=== PATIENT | female | born 1960 | race African-American/Black ===

== ENCOUNTER 2017-04-07 23:44 | Emergency (ER) | payer MEDICARE, MEDICAID ==
[~2017-04-07] VITALS: Ht 175.3 cm; Wt 78.9 kg
[~2017-04-07 23:44] MED LIST: BENA10TA47 PO; METOPROLOL PO
[2017-04-08 00:27] LABS: Urine Bilirubin Negative (Negative); Urine Blood Negative /uL (Negative); Urine Color Yellow (Yellow); Urine Glucose Normal (Normal); Urine Ketone Negative (Negative); Urine Nitrite Negative (Negative); Urine RBC 1 /hpf (0 - 4); Urine Squamous Epithelial Cell FEW /hpf (<5); Urine Urobilinogen Normal (Negative)
[2017-04-08 00:41] LABS: Hematocrit 38.3 % (36.0-46.0); Hemoglobin 12.8 g/dL (12.2-16.2); Mean Corpuscular Hemoglobin 31.7 pg (28.0-32.0); Mean Corpuscular Hgb Conc. 33.3 g/dL (32.0-36.0); Mean Corpuscular Volume 95.3 fL (80.0-100.0); Mean Platelet Volume 8.2 fL (7.4-10.4); Platelet Count (auto) 297 10^3/uL (140-450); Red Cell Distribution Width 13.9 % (11.6-16.0); SUSPECT SEE PRINTOUT; White Blood Cell 6.6 10^3/uL (4.4-10.8)
[2017-04-08 00:44] LABS: Metamyelocytes % 0; Myelocytes % 0; Promyelocytes % 0; Reactive Lymphocytes 0
[2017-04-08 00:51] LABS: Albumin 3.6 g/dL (3.4-5.0); BUN/Creatinine Ratio 15.4; Calcium 8.7 mg/dL (8.5-10.1); Potassium 4.1 mmol/L (3.5-5.1)
[2017-04-08 00:54] LABS: Bilirubin, Total 0.2 mg/dL (0.2-1.0)
[2017-04-08 01:34] LABS: Platelet Estimate Adequate; RBC Morphology Normal
[2017-04-08 03:12] VITALS: BP 156/98
== END 2017-04-08 03:12 | disposition home or self-care (01) ==
LOC: ER 23:44
DX: L02.01 Cutaneous abscess of face (principal); E78.5 Hyperlipidemia, unspecified; I10 Essential (primary) hypertension
CPT/HCPCS: 36415; 80053; 81001; 85007; 85027; 94761

== ENCOUNTER 2017-05-14 16:16 | Emergency (ER) | payer MEDICARE, MEDICAID ==
[~2017-05-14] VITALS: Ht 175.3 cm; Wt 79.8 kg
[2017-05-14 16:51] VITALS: BP 149/109
== END 2017-05-14 17:41 | disposition home or self-care (01) ==
LOC: ER 16:18
DX: L70.0 Acne vulgaris (principal); I10 Essential (primary) hypertension; E78.5 Hyperlipidemia, unspecified

== ENCOUNTER → 2017-11-04 | Outpatient (CLI) | payer MEDICARE, MEDICAID | END | disposition home or self-care (01) | LOC: Rad HDHVI 11:33 | PROVIDERS: ATTEND Internal Medicine Cardiovascular Disease | DX: R07.9 Chest pain, unspecified (principal) | CPT/HCPCS: 93306 ==

== ENCOUNTER → 2017-11-17 | Outpatient (CLI) | payer MEDICARE, MEDICAID ==
[~2017-11-17] VITALS: Ht 176.5 cm; Wt 73.9 kg
== END ==
LOC: Rad HDHVI 10:57
PROVIDERS: ATTEND Internal Medicine Cardiovascular Disease
DX: R07.89 Other chest pain (principal); R06.02 Shortness of breath; E78.00 Pure hypercholesterolemia, unspecified; I10 Essential (primary) hypertension; C50.919 Malignant neoplasm of unspecified site of unspecified female breast
CPT/HCPCS: 78452; 93017; 96374; A9500

== ENCOUNTER → 2018-02-16 | Outpatient (CLI) | payer MEDICARE, MEDICAID ==
[2018-02-16 10:35] VITALS: BP_SYST 115; BP_SYST 120; BP_DIAS 79; BP_DIAS 83
== END | disposition home or self-care (01) ==
LOC: CHF HDHVI 10:39
PROVIDERS: ATTEND Internal Medicine Cardiovascular Disease
DX: I25.118 Atherosclerotic heart disease of native coronary artery with other forms of angina pectoris (principal); I73.9 Peripheral vascular disease, unspecified; I11.0 Hypertensive heart disease with heart failure; I50.23 Acute on chronic systolic (congestive) heart failure; R06.02 Shortness of breath; E78.00 Pure hypercholesterolemia, unspecified
CPT/HCPCS: G0166

== ENCOUNTER → 2018-02-17 | Outpatient (CLI) | payer MEDICARE, MEDICAID ==
[2018-02-17 10:48] VITALS: BP_SYST 123; BP_SYST 132; BP_DIAS 83; BP_DIAS 88
== END | disposition home or self-care (01) ==
LOC: CHF HDHVI 10:30
PROVIDERS: ATTEND Internal Medicine Cardiovascular Disease
DX: I25.118 Atherosclerotic heart disease of native coronary artery with other forms of angina pectoris (principal); I73.9 Peripheral vascular disease, unspecified; I11.0 Hypertensive heart disease with heart failure; I50.23 Acute on chronic systolic (congestive) heart failure; R06.02 Shortness of breath; E78.00 Pure hypercholesterolemia, unspecified
CPT/HCPCS: G0166

== ENCOUNTER → 2018-02-20 | Outpatient (CLI) | payer MEDICARE, MEDICAID ==
[2018-02-20 11:25] VITALS: BP_SYST 130; BP_SYST 136; BP_DIAS 90; BP_DIAS 91
== END | disposition home or self-care (01) ==
LOC: CHF HDHVI 11:01
PROVIDERS: ATTEND Internal Medicine Cardiovascular Disease
DX: I25.718 Atherosclerosis of autologous vein coronary artery bypass graft(s) with other forms of angina pectoris (principal); I11.0 Hypertensive heart disease with heart failure; I50.23 Acute on chronic systolic (congestive) heart failure; I73.9 Peripheral vascular disease, unspecified; Z87.891 Personal history of nicotine dependence; Z95.0 Presence of cardiac pacemaker
CPT/HCPCS: G0166

== ENCOUNTER → 2018-02-21 | Outpatient (CLI) | payer MEDICARE, MEDICAID ==
[~2018-02-21] MED LIST changes: +AMLO10TA2 PO; +ANAS1TAB6 PO; +GABA300C10 PO; +METO25TA5 PO; +OMEP20TA PO; +PRE5T GT; +RANO500T2 PO; +SIMV-8 PO
[2018-02-21 10:52] VITALS: BP_SYST 130; BP_SYST 142; BP_DIAS 83; BP_DIAS 90
== END | disposition home or self-care (01) ==
LOC: CHF HDHVI 10:27
PROVIDERS: ATTEND Internal Medicine Cardiovascular Disease
DX: I25.718 Atherosclerosis of autologous vein coronary artery bypass graft(s) with other forms of angina pectoris (principal); I50.23 Acute on chronic systolic (congestive) heart failure; R06.02 Shortness of breath; I73.9 Peripheral vascular disease, unspecified
CPT/HCPCS: G0166

== ENCOUNTER → 2018-02-22 | Outpatient (CLI) | payer MEDICARE, MEDICAID ==
[2018-02-22 10:58] VITALS: BP_SYST 136; BP_SYST 140; BP_DIAS 86; BP_DIAS 92
== END | disposition home or self-care (01) ==
LOC: CHF HDHVI 10:46
PROVIDERS: ATTEND Internal Medicine Cardiovascular Disease
DX: I25.718 Atherosclerosis of autologous vein coronary artery bypass graft(s) with other forms of angina pectoris (principal); I11.0 Hypertensive heart disease with heart failure; I50.23 Acute on chronic systolic (congestive) heart failure; I73.9 Peripheral vascular disease, unspecified; R06.02 Shortness of breath; J44.9 Chronic obstructive pulmonary disease, unspecified; E78.00 Pure hypercholesterolemia, unspecified; Z87.891 Personal history of nicotine dependence; Z95.0 Presence of cardiac pacemaker
CPT/HCPCS: G0166

== ENCOUNTER → 2018-03-07 | Outpatient (CLI) | payer MEDICARE, MEDICAID ==
[~2018-03-07] MED LIST changes: -AMLO10TA2 PO; -ANAS1TAB6 PO; -GABA300C10 PO; +KETOROLAC TROMETH 60MG/2ML VIAL IM ONE; -METO25TA5 PO; -OMEP20TA PO; -PRE5T GT; -RANO500T2 PO; -SIMV-8 PO; +SODIUM CHLORIDE 0.9% 500 ML IV ONE
[2018-03-07 11:08] VITALS: BP_SYST 138; BP_SYST 143; BP_DIAS 98; BP_DIAS 99
[2018-03-07 13:45] VITALS: BP 142/97
[2018-03-07 16:19] LABS: Urine Bacteria FEW /hpf (None Seen); Urine Blood Negative /uL (Negative); Urine Specific Gravity 1.007 (1.001-1.035); Urine WBC <1 /hpf (0 - 5)
[2018-03-07 16:24] LABS: Albumin 3.4 g/dL (3.4-5.0); Calcium 8.9 mg/dL (8.5-10.1); Potassium 3.9 mmol/L (3.5-5.1)
[2018-03-07 16:26] LABS: BUN/Creatinine Ratio 8.4
[2018-03-07 16:28] LABS: Bilirubin, Total 0.3 mg/dL (0.2-1.0); Total Protein 7.1 g/dL (6.4-8.2)
[2018-03-07 16:36] LABS: Basophils # (auto) 0 uL; Basophils % (auto) 0.5 % (0.0-2.0); Eosinophils # (auto) 0 uL; Eosinophils % (auto) 0.3 % (0.0-7.0); Lymphocytes # (auto) 1.9 uL; Lymphocytes % (auto) 24.1 % (10.0-50.0); Mean Corpuscular Hemoglobin 33.7 pg (28.0-32.0); Mean Corpuscular Hgb Conc. 33.4 g/dL (32.0-36.0); Mean Corpuscular Volume 100.9 fL (80.0-100.0); Monocytes # (auto) 0.4 uL; Monocytes % (auto) 4.9 % (0.0-12.0); Neutrophils # (auto) 5.5 uL; Neutrophils % (auto) 70.2 % (37.0-80.0); Nucleated Red Blood Cells % 0.1 %; Platelet Count (auto) 314 10^3/uL (140-450); Red Blood Cells 4.16 10^6/uL (4.0-5.20); Red Cell Distribution Width 15.5 % (11.8-14.3); White Blood Cell 7.8 10^3/uL (4.4-10.8)
== END | disposition home or self-care (01) ==
LOC: CHF HDHVI 10:19
PROVIDERS: ATTEND Internal Medicine Cardiovascular Disease
DX: I11.0 Hypertensive heart disease with heart failure (principal); I50.23 Acute on chronic systolic (congestive) heart failure; I50.33 Acute on chronic diastolic (congestive) heart failure; R42 Dizziness and giddiness; D64.9 Anemia, unspecified; N39.0 Urinary tract infection, site not specified; R06.02 Shortness of breath; I67.9 Cerebrovascular disease, unspecified; M54.5 Low back pain; M54.2 Cervicalgia; I25.119 Atherosclerotic heart disease of native coronary artery with unspecified angina pectoris; J44.9 Chronic obstructive pulmonary disease, unspecified; E78.5 Hyperlipidemia, unspecified; E78.00 Pure hypercholesterolemia, unspecified; Z95.0 Presence of cardiac pacemaker; Z87.891 Personal history of nicotine dependence
CPT/HCPCS: 36415; 80053; 81001; 85025; 87086; 96360; 96372; G0166; G0463; J1885; J7040

== ENCOUNTER → 2018-03-13 | Outpatient (CLI) | payer MEDICARE, MEDICAID ==
[~2018-03-13] MED LIST changes: -KETOROLAC TROMETH 60MG/2ML VIAL IM ONE; -SODIUM CHLORIDE 0.9% 500 ML IV ONE
[2018-03-13 14:07] VITALS: BP 134/92
[2018-03-13 14:08] VITALS: BP 144/92
== END | disposition home or self-care (01) ==
LOC: CHF HDHVI 10:48
PROVIDERS: ATTEND Internal Medicine Cardiovascular Disease
DX: I25.118 Atherosclerotic heart disease of native coronary artery with other forms of angina pectoris (principal); I50.23 Acute on chronic systolic (congestive) heart failure; R06.02 Shortness of breath; I73.9 Peripheral vascular disease, unspecified
CPT/HCPCS: G0166

== ENCOUNTER → 2018-03-14 | Outpatient (CLI) | payer MEDICARE, MEDICAID ==
[2018-03-14 11:15] VITALS: BP_SYST 137; BP_SYST 138; BP_DIAS 85; BP_DIAS 87
== END | disposition home or self-care (01) ==
LOC: CHF HDHVI 11:02
PROVIDERS: ATTEND Internal Medicine Cardiovascular Disease
DX: I25.118 Atherosclerotic heart disease of native coronary artery with other forms of angina pectoris (principal); I50.23 Acute on chronic systolic (congestive) heart failure; R06.02 Shortness of breath; I73.9 Peripheral vascular disease, unspecified
CPT/HCPCS: G0166

== ENCOUNTER → 2018-03-15 | Outpatient (CLI) | payer MEDICARE, MEDICAID ==
[2018-03-15 11:21] VITALS: BP_SYST 126; BP_SYST 134; BP_DIAS 88; BP_DIAS 89
== END | disposition home or self-care (01) ==
LOC: CHF HDHVI 10:49
PROVIDERS: ATTEND Internal Medicine Cardiovascular Disease
DX: I25.118 Atherosclerotic heart disease of native coronary artery with other forms of angina pectoris (principal); I50.23 Acute on chronic systolic (congestive) heart failure; I73.9 Peripheral vascular disease, unspecified; R06.02 Shortness of breath
CPT/HCPCS: G0166

== ENCOUNTER → 2018-03-16 | Outpatient (CLI) | payer MEDICARE, MEDICAID ==
[2018-03-16 11:24] VITALS: BP_SYST 127; BP_SYST 129; BP_DIAS 78; BP_DIAS 85
== END | disposition home or self-care (01) ==
LOC: CHF HDHVI 11:02
PROVIDERS: ATTEND Internal Medicine Cardiovascular Disease
DX: I25.118 Atherosclerotic heart disease of native coronary artery with other forms of angina pectoris (principal); I11.0 Hypertensive heart disease with heart failure; I50.23 Acute on chronic systolic (congestive) heart failure; I73.9 Peripheral vascular disease, unspecified; E78.00 Pure hypercholesterolemia, unspecified; J44.9 Chronic obstructive pulmonary disease, unspecified; E78.5 Hyperlipidemia, unspecified; F41.9 Anxiety disorder, unspecified
CPT/HCPCS: G0166

== ENCOUNTER → 2018-03-21 | Outpatient (CLI) | payer MEDICARE, MEDICAID ==
[~2018-03-21] MED LIST changes: +AMLO10TA2 PO; +ANAS1TAB6 PO; +GABA300C10 PO; +METO25TA5 PO; +OMEP20TA PO; +PRE5T GT; +RANO500T2 PO; +SIMV-8 PO
[2018-03-21 12:27] VITALS: BP_SYST 134; BP_SYST 142; BP_DIAS 88; BP_DIAS 96
== END | disposition home or self-care (01) ==
LOC: CHF HDHVI 11:05
PROVIDERS: ATTEND Internal Medicine Cardiovascular Disease
DX: I25.118 Atherosclerotic heart disease of native coronary artery with other forms of angina pectoris (principal); I11.0 Hypertensive heart disease with heart failure; I50.23 Acute on chronic systolic (congestive) heart failure; R06.02 Shortness of breath; I73.9 Peripheral vascular disease, unspecified; E78.5 Hyperlipidemia, unspecified; Z87.891 Personal history of nicotine dependence
CPT/HCPCS: G0166

== ENCOUNTER → 2018-03-23 | Outpatient (CLI) | payer MEDICARE, MEDICAID ==
[2018-03-23 13:45] VITALS: BP_SYST 139; BP_SYST 141; BP_DIAS 86; BP_DIAS 91
== END | disposition home or self-care (01) ==
LOC: CHF HDHVI 12:19
PROVIDERS: ATTEND Internal Medicine Cardiovascular Disease
DX: I25.118 Atherosclerotic heart disease of native coronary artery with other forms of angina pectoris (principal); R06.02 Shortness of breath; I73.9 Peripheral vascular disease, unspecified; J44.9 Chronic obstructive pulmonary disease, unspecified; I11.0 Hypertensive heart disease with heart failure; I50.23 Acute on chronic systolic (congestive) heart failure; E78.5 Hyperlipidemia, unspecified
CPT/HCPCS: G0166

== ENCOUNTER 2018-03-24 15:02 | Inpatient (IN) | payer MEDICARE, MEDICAID ==
[~2018-03-24] VITALS: Ht 176.5 cm; Wt 80.4 kg
[~2018-03-24 15:02] MED LIST changes: -AMLO10TA2 PO; -ANAS1TAB6 PO; -GABA300C10 PO; -METO25TA5 PO; -OMEP20TA PO; -PRE5T GT; -RANO500T2 PO; -SIMV-8 PO
[2018-03-24 16:21] LABS: Hematocrit 43.4 % (36.0-46.0); Hemoglobin 14.6 g/dL (12.2-16.2); Mean Corpuscular Hemoglobin 33.9 pg (28.0-32.0); Mean Corpuscular Hgb Conc. 33.7 g/dL (32.0-36.0); Mean Corpuscular Volume 100.6 fL (80.0-100.0); Platelet Count (auto) 293 10^3/uL (140-450); Red Blood Cells 4.32 10^6/uL (4.0-5.20); Red Cell Distribution Width 15.3 % (11.8-14.3); White Blood Cell 6.9 10^3/uL (4.4-10.8)
[2018-03-24 16:24] LABS: Band Neutrophils % (manual) 0
[2018-03-24 16:25] LABS: Basophils % (manual) 0 (0.0-2.0); Blast Cells 0; Metamyelocytes % 0; Myelocytes % 0; Promyelocytes % 0; Reactive Lymphocytes 0
[2018-03-24 16:44] LABS: Alanine Aminotransferase 50 U/L (13-56); Albumin 3.7 g/dL (3.4-5.0); Alkaline Phosphatase 55 U/L (45-117); Anion Gap 9 (5-15); Aspartate Aminotransferase 21 U/L (15-37); BUN/Creatinine Ratio 9.8; Bilirubin, Total 0.4 mg/dL (0.2-1.0); Blood Alcohol < 3.0 mg/dL (0-5); Blood Urea Nitrogen 10 mg/dL (7-18); Calcium 9.1 mg/dL (8.5-10.1); Carbon Dioxide 27 mmol/L (21-32); Chloride 105 mmol/L (98-107); GFR African American 72 mL/min; GFR Non-African American 60 mL/min; Glucose 90 mg/dL (74-106); Magnesium 2.8 mg/dL (1.6-2.6); Potassium 3.8 mmol/L (3.5-5.1); Sodium 141 mmol/L (136-145)
[2018-03-24] MEDS ORDERED: MORPHINE SULF INJ 2 MG/ML SYRINGE 1ML IV PRN ×2 (18:30)
[2018-03-24] MEDS ORDERED: LACTULOSE 20Gm/30ML SOLN PO PRN (18:30)
[2018-03-24] MEDS ORDERED: NITROGLYCERIN 0.4 MG SL TAB SL PRN (18:30)
[2018-03-24] MEDS ORDERED: PROMETHAZINE HCL 25 MG/ML 1ML IV PRN (18:30)
[2018-03-24] MEDS ORDERED: TEMAZEPAM 15 MG CAP PO PRN (18:30)
[2018-03-24] MEDS ORDERED: ACETAMINOPHEN 500 MG TAB PO PRN (18:30)
[2018-03-24] MEDS ORDERED: LORazepam 0.5 MG TAB PO PRN (18:30)
[2018-03-24] MEDS ORDERED: LABETALOL HCL 5 MG/ML ML 20ML VIAL IV PRN (18:30)
[2018-03-24] MEDS ORDERED: HYDROcodone-ACET 5/325MG TAB PO PRN (18:30)
[2018-03-24 19:06] LABS: Eosinophils % (manual) 2 (0-7); Lymphocytes % (manual) 40 (10.0-50.0); Monocytes % (manual) 4 (0-12)
[2018-03-24 19:46] LABS: Urine Bacteria NONE SEEN /hpf (None Seen); Urine Blood Negative /uL (Negative); Urine Specific Gravity 1.005 (1.001-1.035); Urine WBC <1 /hpf (0 - 5)
[2018-03-24 19:47] LABS: Alcohol, Urine < 3.0 mg/dL (0-5); Amphetamine Screen, Urine NEGATIVE (NEGATIVE); Barbiturate Scree,Urine NEGATIVE (NEGATIVE); Benzodiazephine Screen, Urine NEGATIVE (NEGATIVE); Cannabinoid Screen, Urine NEGATIVE (NEGATIVE); Cocaine Screen, Urine NEGATIVE (NEGATIVE); Opiate Scree,Urine NEGATIVE (NEGATIVE); Phencyclidine Screen, Urine NEGATIVE (NEGATIVE)
[2018-03-24] MEDS ORDERED: IOHEXOL 300 MG/ML 75ml BOTTLE IJ ONE (20:30)
[2018-03-24] MEDS: SODIUM CHLORIDE 0.9% 1,000 ML IV SCH (20:46)
[2018-03-24] MEDS: OXYCODONE W/ ACETAMINOPHEN 5/325MG TABLET PO PRN (20:57)
[2018-03-24] MEDS ORDERED: ATORVASTATIN 20 MG TAB PO SCH (22:00)
[2018-03-24] MEDS: METOPROLOL TARTRATE 25 MG TAB PO SCH (22:13)
[2018-03-24] MEDS: MORPHINE SULF 15mg ER tab PO SCH (22:14)
[2018-03-24 23:44] VITALS: BP 131/97
[2018-03-25] VITALS (7 sets, daily range): BP systolic 110–131; BP diastolic 72–97
[2018-03-25] MEDS ORDERED: METO25TA5 PO (00:14)
[2018-03-25] MEDS: MORPHINE SULF INJ 2 MG/ML SYRINGE 1ML IV PRN ×2 (05:13→22:17)
[2018-03-25 06:10] LABS: Cholesterol 218 mg/dL (< 200); HDL Cholesterol 62 mg/dL (40-59); LDL Cholesterol 117 mg/dL (< 100); Triglycerides 275 mg/dL (< 150)
[2018-03-25] MEDS: SODIUM CHLORIDE 0.9% 1,000 ML IV SCH ×2 (07:08→19:25)
[2018-03-25] MEDS: PANTOPRAZOLE 40 MG TAB PO SCH (09:56)
[2018-03-25] MEDS: ASPirin 81 mg TAB PO SCH (09:56)
[2018-03-25] MEDS: METOPROLOL TARTRATE 25 MG TAB PO SCH ×2 (09:57→22:08)
[2018-03-25] MEDS: ENOXAPARIN SOD 40 MG/0.4 ML SYRINGE SC SCH (09:57)
[2018-03-25] MEDS ORDERED: BENAZEPRIL PO SCH (10:00)
[2018-03-25] MEDS: MORPHINE SULF 15mg ER tab PO SCH ×2 (10:00→22:00)
[2018-03-25] MEDS ORDERED: HYDROCHLOROTHIAZI PO SCH (10:00)
[2018-03-25] MEDS: OXYCODONE W/ ACETAMINOPHEN 5/325MG TABLET PO PRN ×2 (10:06→16:39)
[2018-03-25] MEDS ORDERED: LORazepam 2MG/ML-1ML VIAL IV PRN (12:45)
[2018-03-25] MEDS ORDERED: GABA300C10 PO (14:30)
[2018-03-25] MEDS ORDERED: OMEP20TA PO (14:30)
[2018-03-25] MEDS ORDERED: AMLO10TA2 PO (14:30)
[2018-03-25] MEDS ORDERED: PRE5T GT (14:30)
[2018-03-25] MEDS ORDERED: ANAS1TAB6 PO (14:30)
[2018-03-25] MEDS ORDERED: RANO500T2 PO (14:30)
[2018-03-25] MEDS ORDERED: SIMV-8 PO (14:30)
[2018-03-25] MEDS: ATORVASTATIN 20 MG TAB PO SCH (22:09)
[2018-03-26 05:00] VITALS: BP 139/90
[2018-03-26 09:00] VITALS: BP 131/77
[2018-03-26] MEDS: METOPROLOL TARTRATE 25 MG TAB PO SCH ×2 (09:52→22:33)
[2018-03-26] MEDS: PANTOPRAZOLE 40 MG TAB PO SCH (09:54)
[2018-03-26] MEDS: ENOXAPARIN SOD 40 MG/0.4 ML SYRINGE SC SCH (09:54)
[2018-03-26] MEDS: ASPirin 81 mg TAB PO SCH (09:54)
[2018-03-26] MEDS: MORPHINE SULF INJ 2 MG/ML SYRINGE 1ML IV PRN ×2 (09:55→23:00)
[2018-03-26] MEDS: SODIUM CHLORIDE 0.9% 1,000 ML IV SCH ×2 (09:56→22:35)
[2018-03-26] MEDS: MORPHINE SULF 15mg ER tab PO SCH ×2 (10:00→22:00)
[2018-03-26 13:00] VITALS: BP 135/95
[2018-03-26] MEDS: OXYCODONE W/ ACETAMINOPHEN 5/325MG TABLET PO PRN (16:34)
[2018-03-26 17:00] VITALS: BP 145/91
[2018-03-26 20:00] VITALS: BP 146/112
[2018-03-26 22:00] VITALS: BP 133/81
[2018-03-26] MEDS: ATORVASTATIN 20 MG TAB PO SCH (22:35)
[2018-03-27 05:00] VITALS: BP 144/114
[2018-03-27 07:30] VITALS: BP 124/85
[2018-03-27] MEDS: SODIUM CHLORIDE 0.9% 1,000 ML IV SCH (08:55)
[2018-03-27] MEDS ORDERED: amLODIPine BESYLATE 5 MG TAB PO SCH (10:00)
[2018-03-27] MEDS: MORPHINE SULF 15mg ER tab PO SCH (10:00)
[2018-03-27] MEDS ORDERED: ANASTROZOLE 1MG TAB PO SCH (10:00)
[2018-03-27 10:43] LABS: Folate (Folic Acid) 11.23 ng/mL (5.38-24)
[2018-03-27] MEDS: METOPROLOL TARTRATE 25 MG TAB PO SCH (11:23)
[2018-03-27] MEDS: ASPirin 81 mg TAB PO SCH (11:24)
[2018-03-27] MEDS: ENOXAPARIN SOD 40 MG/0.4 ML SYRINGE SC SCH (11:25)
[2018-03-27] MEDS: PANTOPRAZOLE 40 MG TAB PO SCH (11:25)
[2018-03-27 12:00] VITALS: BP 133/95
[2018-03-27] MEDS: OXYCODONE W/ ACETAMINOPHEN 5/325MG TABLET PO PRN (14:07)
[2018-03-27 16:20] VITALS: BP 122/95
== END 2018-03-27 17:40 | disposition home or self-care (01) | DRG 69 ==
LOC: EDBD 15:02 → ER 15:05 → TELE 15:06 → TELE-WESTW 23:42
PROVIDERS: ADMIT Internal Medicine; ATTEND Internal Medicine Pulmonary Disease
DX: G45.9 Transient cerebral ischemic attack, unspecified (principal); E78.5 Hyperlipidemia, unspecified; F41.9 Anxiety disorder, unspecified; G62.9 Polyneuropathy, unspecified; M54.2 Cervicalgia; I10 Essential (primary) hypertension; Z79.82 Long term (current) use of aspirin; Z79.899 Other long term (current) drug therapy; Z82.49 Family history of ischemic heart disease and other diseases of the circulatory system; Z83.3 Family history of diabetes mellitus; Z85.3 Personal history of malignant neoplasm of breast; Z87.891 Personal history of nicotine dependence; Z90.13 Acquired absence of bilateral breasts and nipples
CPT/HCPCS: 99285; G0166; 36415; 70450; 70460; 70487; 70551; 71045; 72125; 80053; 80061; 80307; 80320; 81001; 82550; 82607; 82746; 83735; 84443; 84484; 85007; 85027; 85652; 93005; 93886; 94761; Q9967

== ENCOUNTER 2018-03-28 14:14 | Emergency (ER) | payer MEDICARE, MEDICAID ==
[~2018-03-28] VITALS: Ht 175.3 cm; Wt 68.0 kg
[~2018-03-28 14:14] MED LIST changes: +AMLO10TA2 PO; +ANAS1TAB6 PO; +GABA300C10 PO; +METO25TA5 PO; -METOPROLOL PO; +OMEP20TA PO; +PRE5T GT; +RANO500T2 PO; +SIMV-8 PO
[2018-03-28 14:24] VITALS: BP 158/71
== END 2018-03-28 17:09 | disposition left against medical advice (07) ==
LOC: ER 14:14 → EDBD 14:14 → ER 17:02
DX: R53.1 Weakness (principal); R20.0 Anesthesia of skin; I10 Essential (primary) hypertension; E78.5 Hyperlipidemia, unspecified
CPT/HCPCS: 93005

== ENCOUNTER → 2018-05-16 | Outpatient (CLI) | payer MEDICARE, MEDICAID ==
[~2018-05-16] MED LIST changes: +AMLO10TA12 PO; -AMLO10TA2 PO; -ANAS1TAB6 PO; +ANAS1TAB7 PO; +IOHEXOL 350 MG/ML 100ML IJ ONE; +SODIUM CHLORIDE 0.9% 1,000 ML IV SCH
[2018-05-16 10:50] VITALS: BP 153/102
[2018-05-16 12:50] VITALS: BP 146/104
== END | disposition home or self-care (01) ==
LOC: Rad HDHVI 10:41
PROVIDERS: ATTEND Internal Medicine Cardiovascular Disease
DX: J02.9 Acute pharyngitis, unspecified (principal); I10 Essential (primary) hypertension; E78.5 Hyperlipidemia, unspecified; R59.9 Enlarged lymph nodes, unspecified; F41.9 Anxiety disorder, unspecified; Z79.82 Long term (current) use of aspirin; Z79.899 Other long term (current) drug therapy; Z87.891 Personal history of nicotine dependence; Z85.3 Personal history of malignant neoplasm of breast
CPT/HCPCS: 70491; 82565; 96360; G0463; J7030; Q9967

== ENCOUNTER 2018-07-25 12:41 | Emergency (ER) | payer MEDICARE, MEDICAID ==
[~2018-07-25] VITALS: Ht 175.3 cm; Wt 78.9 kg
[~2018-07-25 12:41] MED LIST changes: -IOHEXOL 350 MG/ML 100ML IJ ONE; -SODIUM CHLORIDE 0.9% 1,000 ML IV SCH
[2018-07-25] MEDS ORDERED: SODIUM CHLORIDE 0.9% 1,000 ML IV ONE ×2 (13:37)
[2018-07-25 13:59] LABS: Basophils # (auto) 0.1 uL; Eosinophils # (auto) 0 uL; Eosinophils % (auto) 0.4 % (0.0-7.0); Monocytes # (auto) 0.5 uL; Neutrophils # (auto) 4.3 uL; White Blood Cell 8.2 10^3/uL (4.4-10.8)
[2018-07-25 14:01] LABS: Hematocrit 46.4 % (36.0-46.0); Hemoglobin 16.3 g/dL (12.2-16.2); Lymphocytes # (auto) 3.3 uL; Lymphocytes % (auto) 40.1 % (10.0-50.0); Mean Corpuscular Hemoglobin 35.3 pg (28.0-32.0); Mean Corpuscular Hgb Conc. 35.1 g/dL (32.0-36.0); Mean Corpuscular Volume 100.5 fL (80.0-100.0); Neutrophils % (auto) 52.5 % (37.0-80.0); Nucleated Red Blood Cells % 0.2 %; Platelet Count (auto) 295 10^3/uL (140-450); Red Blood Cells 4.62 10^6/uL (4.0-5.20); Red Cell Distribution Width 14.4 % (11.8-14.3)
[2018-07-25 14:29] LABS: Sodium 137 mmol/L (136-145)
[2018-07-25 14:30] LABS: Alanine Aminotransferase 66 U/L (13-56); Albumin 3.9 g/dL (3.4-5.0); Alkaline Phosphatase 63 U/L (45-117); Anion Gap 11 (5-15); Aspartate Aminotransferase 25 U/L (15-37); BUN/Creatinine Ratio 12.1; Bilirubin, Total 0.3 mg/dL (0.2-1.0); Blood Urea Nitrogen 12 mg/dL (7-18); Calcium 9.1 mg/dL (8.5-10.1); Carbon Dioxide 23 mmol/L (21-32); Chloride 103 mmol/L (98-107); GFR African American 74 mL/min; GFR Non-African American 61 mL/min; Glucose 97 mg/dL (74-106); Total Protein 7.5 g/dL (6.4-8.2)
[2018-07-25 14:56] LABS: Potassium 2.9 mmol/L (3.5-5.1)
[2018-07-25] MEDS ORDERED: POTASSIUM EFFERVESENT TAB 25 MEQ PO ONE (15:45)
[2018-07-25 16:02] VITALS: BP 149/109
[2018-07-25] MEDS ORDERED: ONDANSETRON HCL 4 MG/2 ML VIAL IV ONE (18:00)
[2018-07-25] MEDS ORDERED: MORPHINE SULFATE 4 MG/ML SYR/VIAL IV ONE (18:00)
== END 2018-07-25 18:56 | disposition home or self-care (01) ==
LOC: EDBD 12:41 → ER 12:49
DX: E86.0 Dehydration (principal); E87.6 Hypokalemia; E78.5 Hyperlipidemia, unspecified; I10 Essential (primary) hypertension; Z86.73 Personal history of transient ischemic attack (TIA), and cerebral infarction without residual deficits; Z79.899 Other long term (current) drug therapy; Z85.3 Personal history of malignant neoplasm of breast
CPT/HCPCS: 36415; 71046; 80053; 84484; 85025; 93005; 96361; 96374; 96375; 99285; J2270; J2405; J7030

== ENCOUNTER 2018-09-28 21:22 | Emergency (ER) | payer MEDICARE, MEDICAID ==
[~2018-09-28] VITALS: Ht 175.3 cm; Wt 83.0 kg
[2018-09-28 21:50] VITALS: BP 113/74
[2018-09-28 22:37] LABS: Basophils # (auto) 0.1 uL; Basophils % (auto) 0.9 % (0.0-2.0); Eosinophils # (auto) 0.1 uL; Platelet Count (auto) 242 10^3/uL (140-450)
[2018-09-28 22:39] LABS: Eosinophils % (auto) 1.1 % (0.0-7.0); Hematocrit 43.3 % (36.0-46.0); Hemoglobin 14.6 g/dL (12.2-16.2); Lymphocytes # (auto) 3.2 uL; Lymphocytes % (auto) 29.3 % (10.0-50.0); Mean Corpuscular Hemoglobin 34.4 pg (28.0-32.0); Mean Corpuscular Hgb Conc. 33.7 g/dL (32.0-36.0); Mean Corpuscular Volume 102.2 fL (80.0-100.0); Monocytes # (auto) 0.6 uL; Monocytes % (auto) 5.7 % (0.0-12.0); Neutrophils # (auto) 6.9 uL; Nucleated Red Blood Cells % 0.4 %; Red Blood Cells 4.24 10^6/uL (4.0-5.20); Red Cell Distribution Width 14.8 % (11.8-14.3)
[2018-09-28 22:51] LABS: Albumin 3.5 g/dL (3.4-5.0); BUN/Creatinine Ratio 13.8; Calcium 8.1 mg/dL (8.5-10.1); Magnesium 2.3 mg/dL (1.6-2.6); Potassium 4.1 mmol/L (3.5-5.1)
[2018-09-28 22:56] LABS: Bilirubin, Total 0.2 mg/dL (0.2-1.0); Total Protein 6.7 g/dL (6.4-8.2)
[2018-09-28 22:57] LABS: Lactic Acid w/Reflex 2.5 mmol/L (0.4-2.0)
== END 2018-09-29 02:46 | disposition left against medical advice (07) ==
LOC: ER 21:22
DX: R42 Dizziness and giddiness (principal); R53.1 Weakness; Z53.21 Procedure and treatment not carried out due to patient leaving prior to being seen by health care provider
CPT/HCPCS: 36415; 71045; 80053; 83605; 83735; 83880; 84484; 85025; 93005

== ENCOUNTER → 2019-07-02 | Outpatient (CLI) | payer MEDICARE, MEDICAID ==
[~2019-07-02] MED LIST changes: -AMLO10TA12 PO; +AMLO10TA13 PO
== END | disposition home or self-care (01) ==
LOC: Rad HDHVI 10:00
PROVIDERS: ATTEND Internal Medicine Cardiovascular Disease
DX: I07.1 Rheumatic tricuspid insufficiency (principal); I20.0 Unstable angina; I50.9 Heart failure, unspecified; R06.02 Shortness of breath
CPT/HCPCS: 93306

== ENCOUNTER 2019-07-29 18:03 | Inpatient (IN) | payer MEDICARE, MEDICAID ==
[~2019-07-29] VITALS: Ht 175.3 cm; Wt 73.7 kg
[2019-07-29] MEDS ORDERED: methylPREDNISolone SOD SUCC 125 MG/2 ML VL IV ONE (19:00)
[2019-07-29 21:42] LABS: Basophils # (auto) 0.1 uL; Basophils % (auto) 1.2 % (0.0-2.0); Eosinophils # (auto) 0 uL; Eosinophils % (auto) 0.6 % (0.0-7.0); Hematocrit 31.1 % (36.0-46.0); Hemoglobin 10.7 g/dL (12.2-16.2); Lymphocytes # (auto) 1.4 uL; Lymphocytes % (auto) 17.4 % (10.0-50.0); Mean Corpuscular Hemoglobin 34.3 pg (28.0-32.0); Mean Corpuscular Hgb Conc. 34.5 g/dL (32.0-36.0); Mean Corpuscular Volume 99.5 fL (80.0-100.0); Monocytes # (auto) 0.1 uL; Monocytes % (auto) 1.6 % (0.0-12.0); Neutrophils # (auto) 6.4 uL; Neutrophils % (auto) 79.2 % (37.0-80.0); Platelet Count (auto) 333 10^3/uL (140-450); Red Blood Cells 3.12 10^6/uL (4.0-5.20); Red Cell Distribution Width 15.8 % (11.8-14.3); White Blood Cell 8.1 10^3/uL (4.4-10.8)
[2019-07-29 22:00] LABS: Calcium 8.6 mg/dL (8.5-10.1); Chloride 111 mmol/L (98-107); Potassium 3.9 mmol/L (3.5-5.1); Sodium 141 mmol/L (136-145)
[2019-07-29 22:09] LABS: Alanine Aminotransferase 14 U/L (13-56); Albumin 3.4 g/dL (3.4-5.0); Alkaline Phosphatase 158 U/L (45-117); Anion Gap 7 (5-15); Aspartate Aminotransferase 14 U/L (15-37); BUN/Creatinine Ratio 16.3; Bilirubin, Total 0.2 mg/dL (0.2-1.0); Blood Urea Nitrogen 13 mg/dL (7-18); Carbon Dioxide 23 mmol/L (21-32); GFR African American 95 mL/min; GFR Non-African American 78 mL/min; Glucose 92 mg/dL (74-106); Total Protein 6.3 g/dL (6.4-8.2)
[2019-07-29] MEDS ORDERED: IPRATROPIUM BROM 0.5 MG/2.5ML INH SOL HHN ONE (22:15)
[2019-07-29] MEDS ORDERED: ALBUTEROL SULF 2.5 MG/0.5ML(0.5%) NEB SOLN HHN ONE (22:15)
[2019-07-29 22:23] LABS: Urine Bacteria NONE SEEN /hpf (None Seen); Urine Blood Negative /uL (Negative); Urine Mucus FEW (None Seen); Urine WBC 1 /hpf (0 - 5)
[2019-07-29] MEDS ORDERED: HYDROcodone-ACET 5/325MG TAB PO PRN (22:30)
[2019-07-29] MEDS ORDERED: ACETAMINOPHEN 325 MG TAB PO PRN (22:30)
[2019-07-29] MEDS ORDERED: MORPHINE SULF INJ 2 MG/ML SYRINGE 1ML IV PRN (22:30)
[2019-07-29] MEDS ORDERED: ONDANSETRON HCL 4 MG/2 ML VIAL IV PRN (22:30)
[2019-07-29] MEDS ORDERED: NITROGLYCERIN 0.4 MG SL TAB SL PRN (22:30)
[2019-07-29] MEDS ORDERED: TEMAZEPAM 15 MG CAP PO PRN (22:30)
[2019-07-29] MEDS ORDERED: IOHEXOL 350 MG/ML 100ML IJ ONE (22:36)
--- NOTE | 2019-07-30 00:25 | NUR ---
Telemetry admit from ER JUNIOR IVY admitted to Telemetry unit. Patient oriented to FERNANDA REDDY RN primary RN, unit, room, bed, and unit policies regarding patient care and visiting hours. Patient now on continuous telemetry monitoring, tele box # [id number] and telemetry reading on arrival to unit is sinus tachycardia at 100 beats per minute with bundle branch block. Patient weighed by bedscale and encouraged to call if they need something. Bed in lowest locked position, side rails up x2, call light within reach. Port-a-cath site to left upper chest noted to be clean, dry, intact, and covered with gauze. All questions and concerns addressed, patient verbalized understanding. Will rond every hour and as needed and continue to monitor.
--- NOTE | 2019-07-30 02:00 | NUR ---
Hospitalist Paged Patient reports morphine and norco use at home to manage pain, requesting to have morphine also ordered. call or contact centre team leader hospitalist paged, awaiting call back at this time.
--- NOTE | 2019-07-30 02:29 | NUR ---
Hospitalist Returned Page reo asset manager hospitalist Jose Manuel Olivares CONVENTIONAL UNDERWRITER returned page at this time, new orders received for Morphine 2 mg IV every eight hours as needed for pain and for change of frequency for current [place] order from every four hours to every six hours. All orders read back and verified, will implement as ordered and continue to monitor.
[2019-07-30 05:00] VITALS: BP 134/93
[2019-07-30 05:47] LABS: Red Blood Cells 3.16 10^6/uL (4.0-5.20)
[2019-07-30 05:49] LABS: Hematocrit 31.2 % (36.0-46.0); Hemoglobin 10.8 g/dL (12.2-16.2); Mean Corpuscular Hemoglobin 34.1 pg (28.0-32.0); Mean Corpuscular Hgb Conc. 34.5 g/dL (32.0-36.0); Mean Corpuscular Volume 98.7 fL (80.0-100.0); Platelet Count (auto) 346 10^3/uL (140-450); White Blood Cell 10.7 10^3/uL (4.4-10.8)
[2019-07-30 06:05] LABS: Basophils % (manual) 0 (0.0-2.0); Blast Cells 0; Eosinophils % (manual) 0 (0-7); Myelocytes % 0; Promyelocytes % 0; Reactive Lymphocytes 0
[2019-07-30] MEDS: GABAPENTIN 300 MG CAP PO SCH ×3 (06:37→21:24)
[2019-07-30 06:45] LABS: BUN/Creatinine Ratio 10.2; Calcium 9.3 mg/dL (8.5-10.1); Potassium 4.3 mmol/L (3.5-5.1)
--- NOTE | 2019-07-30 06:48 | NUR ---
Regarding Arimedix Per patient, she does not take this medication anymore, "the doctors only want me to do the chemo". Will update the medication reconciliation documentation and inform sree RIBERA.
--- NOTE | 2019-07-30 07:01 | NUR ---
Closing Note Patient lying in bed, eyes closed, respirations even and unlabored, appears asleep. Patient awakens to name and touch. No s/s of distress. Bed in lowest locked position, side rails up x2, call light within reach. Care endorsed to dayshift RN.
[2019-07-30 07:28] LABS: Band Neutrophils % (manual) 4; Lymphocytes % (manual) 4 (10.0-50.0); Metamyelocytes % 1; Monocytes % (manual) 1 (0-12)
[2019-07-30 08:30] VITALS: BP 122/89
--- NOTE | 2019-07-30 09:00 | NUR ---
Opening Shift Note Assumed care of patient, awake and alert. No S/S of distress/SOB or pain. Instructed on POC and to call for assist PRN, will continue to monitor for changes Q1hr and PRN.
[2019-07-30] MEDS: FAMOTIDINE 20 MG TAB PO SCH ×2 (09:25→21:24)
[2019-07-30] MEDS: amLODIPine BESYLATE 5 MG TAB PO SCH (09:26)
[2019-07-30] MEDS: METOPROLOL TARTRATE 25 MG TAB PO SCH ×2 (09:26→21:24)
[2019-07-30] MEDS: ANASTROZOLE 1 MG PO SCH (09:26)
[2019-07-30] MEDS: RANOLAZINE ER 500 MG TAB PO SCH ×2 (09:29→21:25)
[2019-07-30] MEDS ORDERED: methylPREDNISolone SOD SUCC 125 MG/2 ML VL IV SCH (10:00)
[2019-07-30] MEDS: HYDROcodone-ACET 5/325MG TAB PO PRN (10:41)
[2019-07-30 12:30] VITALS: BP 114/90
[2019-07-30] MEDS ORDERED: ALBUTEROL SULF 2.5 MG/0.5ML(0.5%) NEB SOLN NEB PRN (13:15)
[2019-07-30] MEDS ORDERED: IPRATROPIUM BROM 0.5 MG/2.5ML INH SOL NEB PRN (13:15)
[2019-07-30 17:23] VITALS: BP 132/92
[2019-07-30] MEDS: BUDESONIDE (INHALATION) 0.5 MG/2 ML NEB NEB SCH (19:07)
--- NOTE | 2019-07-30 19:20 | NUR ---
RT NOTE: PRE AND POST BEDSIDE MYRIAM DONE AND PLACED IN HARD CHART.
--- NOTE | 2019-07-30 19:30 | NUR ---
Opening Shift Assumed care of patient, awake and alert. No S/S of distress/SOB or pain. Insructed on POC and to callfor assist PRN, will continue to monitor for changes Q1hr and PRN. Fall and safety precautions in place. Call light within reach.
[2019-07-30] MEDS: MORPHINE SULF INJ 2 MG/ML SYRINGE 1ML IV PRN (21:25)
[2019-07-30] MEDS: methylPREDNISolone SOD SUCC 125 MG/2 ML VL IV SCH (21:25)
[2019-07-30 21:42] VITALS: BP 134/90
[2019-07-30] MEDS ORDERED: ATORVASTATIN 20 MG TAB PO SCH (22:00)
[2019-07-31 01:32] VITALS: BP 134/90
[2019-07-31 05:00] VITALS: BP 100/76
[2019-07-31] MEDS: GABAPENTIN 300 MG CAP PO SCH (05:25)
[2019-07-31] MEDS: MORPHINE SULF INJ 2 MG/ML SYRINGE 1ML IV PRN (05:26)
[2019-07-31] MEDS: BUDESONIDE (INHALATION) 0.5 MG/2 ML NEB NEB SCH (06:01)
--- NOTE | 2019-07-31 07:45 | NUR ---
OPENING NOTE OBSERVED PT SITTING UP IN BED EATING BREAKFAST. PATIENT DENIES ANY PAIN OR DISTRESS AT THIS TIME. UPDATED ON POC AND VERBALIZED UNDERSTANDING. ENCOURAGED PT TO CONTACT STAFF FOR PRN ASSISTANCE. CALL LIGHT WITHIN REACH. WILL CONTINUE TO MONITOR Q1H AND PRN. CONTINUE PT CARE.
[2019-07-31 08:00] VITALS: BP 134/90
--- NOTE | 2019-07-31 09:57 | NUR ---
AT BEDSIDE DR ROBERTSON IN TO SEE PATIENT.
[2019-07-31] MEDS: ANASTROZOLE 1 MG PO SCH (10:00)
[2019-07-31] MEDS: amLODIPine BESYLATE 5 MG TAB PO SCH (10:00)
[2019-07-31] MEDS: methylPREDNISolone SOD SUCC 125 MG/2 ML VL IV SCH (10:16)
[2019-07-31] MEDS: RANOLAZINE ER 500 MG TAB PO SCH (10:17)
[2019-07-31] MEDS: FAMOTIDINE 20 MG TAB PO SCH (10:17)
[2019-07-31] MEDS: HYDROcodone-ACET 5/325MG TAB PO PRN (10:17)
[2019-07-31] MEDS: METOPROLOL TARTRATE 25 MG TAB PO SCH (10:17)
--- NOTE | 2019-07-31 10:44 | NUR ---
ROOM AIR SATURATIONS ORDERS RECEIVED FROM DR. ROBERTSON TO CHECK PATIENTS O2 SATURATIONS ON ROOM AIR AFTER AMBULATION. MD REQUESTING TO BE CONTACTED IF SATURATIONS ARE 88% OR LESS ON RA. ORDER CARRIED OUT. PATIENT AMBULATED AROUND NURSING UNIT; STANDBY ASSIST. NO SOB NOTED OR REPORTED. RETURNED TO BED W/O INCIDENT. PATIENT SATURATED BETWEEN 96-100% ON RA.
[2019-07-31 11:11] VITALS: BP 99/73
[2019-07-31] MEDS ORDERED: PRE5T PO (11:33)
[2019-07-31] MEDS ORDERED: ALBUAER3 IN (11:33)
[2019-07-31] MEDS ORDERED: BUDE0.5S IN (11:33)
[2019-07-31 12:47] VITALS: BP 105/63
[2019-07-31 13:03] VITALS: BP 119/83
--- NOTE | 2019-07-31 14:00 | NUR ---
Discharge instructions given as ordered. Encourage to follow up with PMD as instructed. All questions and concerns addressed. Patient verbalized understanding. IV removed with catheter intact, pressure dressing applied. Telemetry unit returned to ICU. Patient taken to vehicle via wheelchair with all personal belongings, accompanied by family member. No distress noted at time of departure.
== END 2019-07-31 14:00 | disposition home or self-care (01) | DRG 189 ==
LOC: EDBD 18:03 → EDUNIT# 18:03 → ER 18:05 → TELE-WESTW 18:06
PROVIDERS: ADMIT Nurse Practitioner; ATTEND Internal Medicine
DX: J96.21 Acute and chronic respiratory failure with hypoxia (principal); J45.902 Unspecified asthma with status asthmaticus; I10 Essential (primary) hypertension; I25.10 Atherosclerotic heart disease of native coronary artery without angina pectoris; J44.9 Chronic obstructive pulmonary disease, unspecified; E78.5 Hyperlipidemia, unspecified; Z90.13 Acquired absence of bilateral breasts and nipples; Z85.3 Personal history of malignant neoplasm of breast; Z92.21 Personal history of antineoplastic chemotherapy; Z80.1 Family history of malignant neoplasm of trachea, bronchus and lung; Z82.49 Family history of ischemic heart disease and other diseases of the circulatory system; Z83.3 Family history of diabetes mellitus; Z82.5 Family history of asthma and other chronic lower respiratory diseases; Z86.73 Personal history of transient ischemic attack (TIA), and cerebral infarction without residual deficits; Z87.891 Personal history of nicotine dependence; Z95.828 Presence of other vascular implants and grafts; Z98.82 Breast implant status
CPT/HCPCS: 36415; 70450; 71045; 71275; 80048; 80053; 81001; 83880; 84484; 85007; 85025; 85027; 85379; 93005; 93970; 94640; 94761; 96374; 96375; G0378

== ENCOUNTER 2022-04-14 18:48 | Emergency (ER) | payer MEDICARE, MEDICAID ==
[~2022-04-14] VITALS: Ht 172.7 cm; Wt 72.6 kg
[~2022-04-14 18:48] MED LIST changes: +ALBUAER3 IN; +AMLO-496 PO; -AMLO10TA13 PO; -ANAS1TAB7 PO; -BENA10TA47 PO; +BENA1TAB20 PO; +BUDE0.5S IN; +PRE5T PO
[2022-04-14] MEDS ORDERED: HYDR-4798 PO (20:16)
[2022-04-14 20:23] VITALS: BP 128/78
== END 2022-04-14 20:28 | disposition home or self-care (01) ==
LOC: ER 18:48
DX: G62.9 Polyneuropathy, unspecified (principal); Q89.9 Congenital malformation, unspecified; I25.10 Atherosclerotic heart disease of native coronary artery without angina pectoris; J44.9 Chronic obstructive pulmonary disease, unspecified; E78.5 Hyperlipidemia, unspecified; I10 Essential (primary) hypertension; Z86.73 Personal history of transient ischemic attack (TIA), and cerebral infarction without residual deficits; Z79.899 Other long term (current) drug therapy

== ENCOUNTER 2022-06-24 16:12 | Emergency (ER) | payer MEDICARE, MEDICAID ==
[~2022-06-24] VITALS: Ht 167.6 cm; Wt 63.5 kg
[~2022-06-24 16:12] MED LIST changes: +HYDR-4798 PO
[2022-06-24] MEDS ORDERED: PANTOPRAZOLE 40 MG/10 ML VIAL INJ IV ONE (16:45)
[2022-06-24] MEDS ORDERED: SODIUM CHLORIDE 0.9% 500 ML IVB ONE (16:45)
[2022-06-24] MEDS ORDERED: PROCHLORPERAZINE EDISYLATE 5 MG/ML 2ML VIAL IV ONE (16:45)
[2022-06-24 18:43] LABS: Basophils # (auto) 0 10 ^3/uL (0-0.2); Eosinophils # (auto) 0 10 ^3/uL (0-0.8); Eosinophils % (auto) 0.3 % (0.0-7.0); Monocytes # (auto) 1.1 10 ^3/uL (0-1.3); White Blood Cell 10.6 10^3/uL (4.4-10.8)
[2022-06-24 18:44] LABS: Basophils % (auto) 0.1 % (0.0-2.0); Hematocrit 40.1 % (36.0-46.0); Hemoglobin 12.9 g/dL (12.2-16.2); Lymphocytes # (auto) 0.3 10 ^3/uL (0.4-5.4); Lymphocytes % (auto) 3.2 % (10.0-50.0); Mean Corpuscular Hemoglobin 33.1 pg (28.0-32.0); Mean Corpuscular Volume 103.3 fL (80.0-100.0); Neutrophils # (auto) 9.2 10 ^3/uL (1.6-8.6); Neutrophils % (auto) 86.4 % (37.0-80.0); Red Blood Cells 3.88 10^6/uL (4.0-5.20); Red Cell Distribution Width 13.5 % (11.8-14.3)
[2022-06-24 19:02] LABS: Albumin 3.4 g/dL (3.4-5.0); Calcium 8.2 mg/dL (8.5-10.1)
[2022-06-24 19:06] LABS: BUN/Creatinine Ratio 13.7; Bilirubin, Total 0.2 mg/dL (0.2-1.0); Total Protein 6.8 g/dL (6.4-8.2)
[2022-06-24] MEDS ORDERED: PANT40TA2 PO (19:47)
[2022-06-24] MEDS ORDERED: TRAM-297 PO (19:48)
[2022-06-25 01:30] VITALS: BP 132/99
== END 2022-06-25 01:52 | disposition home or self-care (01) ==
LOC: EDBD 16:12 → ER 16:12
DX: R10.13 Epigastric pain (principal); R11.2 Nausea with vomiting, unspecified; R19.7 Diarrhea, unspecified; I25.10 Atherosclerotic heart disease of native coronary artery without angina pectoris; I10 Essential (primary) hypertension; J44.9 Chronic obstructive pulmonary disease, unspecified; E78.5 Hyperlipidemia, unspecified; J45.909 Unspecified asthma, uncomplicated; Z86.73 Personal history of transient ischemic attack (TIA), and cerebral infarction without residual deficits; Z86.2 Personal history of diseases of the blood and blood-forming organs and certain disorders involving the immune mechanism; Z79.899 Other long term (current) drug therapy
CPT/HCPCS: 36415; 74176; 80053; 82150; 83690; 85025; 93005; 96361; 96374; 96375; 99285; C9113; J0780; J7040

== ENCOUNTER 2022-10-04 19:55 | Emergency (ER) | payer MEDICARE, MEDICAID ==
[~2022-10-04] VITALS: Ht 170.2 cm; Wt 72.6 kg
[~2022-10-04 19:55] MED LIST changes: +PANT40TA2 PO; +TRAM-297 PO
[2022-10-04 20:14] VITALS: BP 144/93
== END 2022-10-05 04:04 | disposition left against medical advice (07) ==
LOC: EDBD 19:55 → ER 19:57
DX: R07.89 Other chest pain (principal); R51.9 Headache, unspecified; R42 Dizziness and giddiness; J44.9 Chronic obstructive pulmonary disease, unspecified; E78.5 Hyperlipidemia, unspecified; I10 Essential (primary) hypertension; Z86.73 Personal history of transient ischemic attack (TIA), and cerebral infarction without residual deficits; Z88.6 Allergy status to analgesic agent
CPT/HCPCS: 70450; 71045; 71250; 74176; 93005

== ENCOUNTER 2025-04-06 21:12 | Emergency (ER) | payer MEDICARE, MEDICAID ==
[~2025-04-06] VITALS: Ht 175.3 cm; Wt 78.8 kg
[~2025-04-06 21:12] MED LIST changes: -AMLO-496 PO; +AMLO1TAB23 PO; +GABA-1250 PO; -GABA300C10 PO; -SIMV-8 PO; +SIMV20TA20 PO
--- NOTE | 2025-04-06 23:58 | ED.PDOC ---
Musculoskeletal HPI Comments 65-year-old female came to ER due to left lower extremity mass. Patient states she had this mass on her left heel for quite sometime now, notable progressive worsening. Patient is scheduled to see a automation/controls manager next week. Patient is able to ambulate. Patient denies any fever nausea or vomiting. Patient denies any traumatic events related to the heel. Chief Complaint: Lower Extremity Time Seen by MD: 23:57 Primary Care Provider: unknown Reviewed Notes: Nurses Notes Allergies: Coded Allergies: NO KNOWN ALLERGIES (Unverified , 01/19/11) Home Meds Active Scripts Tramadol Hcl (Ultram) 50 Mg Tab, 1 TAB PO Q6HR, #30 TAB Prov:CLARIBEL BENÍTEZ MD 06/24/22 Pantoprazole Sodium Sesquihydr (Protonix) 40 Mg Tab, 40 MG PO DAILY, #30 TAB Prov:CLARIBEL BENÍTEZ MD 06/24/22 Hydrocodone-Acetaminophen (Hydrocodone Bitartrate/AC 10-325 mg) 1 Tab Tab, 1 TAB PO Q6HP PRN, #20 TAB Prov:BRIAN JOHN MD 04/14/22 Prednisone (PREDNISONE) 5 Mg Tb, 20 MG PO BID for 5 Days, #40 TAB Prov:PURA ENGEL MD 07/31/19 Budesonide (Inhalation) (Budesonide) 0.5 Mg/2 Ml Giulia, 0.5 MG IN BID for 30 Days, ML Prov:PURA ENGEL MD 07/31/19 Albuterol Sulfate (VENTOLIN MDI) 90 Mcg Ih, 90 MCG IN Q6HP PRN for 30 Days, INH Prov:PURA ENGEL MD 07/31/19 Reported Medications Amlodipine Besylate (Amlodipine Besylate) 10 Mg Tab, 10 MG PO DAILY, TAB 03/25/18 Gabapentin (Gabapentin) 300 Mg Cap, 300 MG PO TID for 30 Days, MG 03/25/18 Prednisone (PREDNISONE) 5 Mg Tb, 20 MG GT BID, #60 03/25/18 Omeprazole (Gnp Omeprazole) 20 Mg Tab, 1 TAB PO DAILY, #90 TAB 1 Refill 03/25/18 Ranolazine (Ranexa) 500 Mg Tab, 500 MG PO BID, #60 TAB 03/25/18 Simvastatin (Simvastatin) 20 Mg Tab, 20 MG PO DAILY, #90 03/25/18 Metoprolol Tartrate (Metoprolol Tartrate) 25 Mg Tab, 25 MG PO BID for 30 Days, MG 03/25/18 Benazepril & Hydrochlorothiazi (Benazepril Hcl/Hydrochlor) 1 Tab Tab, 25 MG PO DAILY 04/13/10 Information Source: Patient Mode of Arrival: Ambulatory Location: Left Extremity Location: Foot (Heel) Timing: Weeks Prehospital treatment: None Severity: Moderate Able to Move Extremity: Yes Bear Weight: Limited Pain: Moderate Hand Dominance: Right Mechanism: Spontaneous Circumstances: Spontaneous Onset of Symptoms: Spontaneous Associated signs and symptoms: Foot pain (Left heel) Past Medical History PAST MEDICAL HISTORY: Anemia, Asthma, CAD, Cancer, COPD, High Lipids, HTN, TIA Surgical History: Denies all surgeries HOSPITAL CODER History: No Pertinent HOSPITAL CODER History Family History Family History: No family hx of Cancer, No family hx of DM, No family hx of Heart chapincito, No family hx of HTN Social History Smoker: Non-Smoker Alcohol: Denies ETOH Use Drugs: Denies Drug Use Lives In: Home Constitutional: denies: chills, diaphoresis, fatigue, fever, malaise, sweats, weakness, others EENTM: denies: blurred vision, double vision, ear bleeding, ear discharge, ear drainage, ear pain, ear ringing, eye pain, eye redness, hearing loss, mouth pain, mouth swelling, nasal discharge, nose bleeding, nose congestion, nose pain, photophobia, tearing, throat pain, throat swelling, voice changes, others Respiratory: denies: cough, hemoptysis, orthopnea, SOB at rest, shortness of breath, SOB with excertion, stridor, wheezing, others Cardiovascular: denies: chest pain, dizzy spells, diaphoresis, Dyspnea on exertion, edema, irregular heart beat, left arm pain, lightheadedness, palpitations, PND, syncope, others Gastrointestinal: denies: abdomen distended, abdominal pain, blood streaked bowels, constipated, diarrhea, dysphagia, difficulty swallowing, hematemesis, melena, nausea, poor appetite, poor fluid intake, rectal bleeding, rectal pain, vomiting, others Genitourinary: denies: abnormal vagina bleeding, burning, dyspareunia, dysuria, flank pain, frequency, hematuria, incontinence, pain, , vagina discharge, urgency, others Musculoskeletal: denies: back pain, gout, joint pain, joint swelling, muscle pain, muscle stiffness, neck pain, others Integumetry: reports: others (Mass left heel); denies: bruises, change in color, change in hair/nails, dryness, laceration, lesions, lumps, rash, wounds Allergic/Immunocompromised: denies: Difficulty Healing, Frequent Infections, Hives, Itching, others Hematologic/Lymphatic: denies: anemia, blood clots, easy bleeding, easy bruising, swollen glands, others Endocrine: denies: excessive hunger, excessive sweating, excessive thirst, excessive urination, flushing, intolerance to cold, intolerance to heat, unexplained weight gain, unexplained weight loss, others Psychiatric: denies: anxiety, bipolar disorder, depression, hopeless, panic disorder, schizophrenia, sleepless, suicidal, others Physical Exam General Appearance: Mild Distress (Due to anxiety related to her heel concerns.), Normal HEENT: Normal ENT Inspection, Pharynx Normal, TMs Normal Neck: Full Range of Motion, Non-Tender, Normal, Normal Inspection Respiratory: Chest Non-Tender, Lungs Clear, No Accessory Muscle Use, No Respiratory Distress, Normal Breath Sounds Cardiovascular: No Edema, No JVD, No Murmur, No Gallop, Normal Peripheral Pulses, Regular Rate/Rhythm Breast Exam: Deferred Gastrointestinal: No Organomegaly, Non Tender, No Pulsatile Mass, Normal Bowel Sounds, Soft Genitalia: Deferred Pelvic: Deferred Rectal: Deferred Extremities: Other (A moderate soft tissue mass was noted to the distal aspect of the left heel pad. No erythema or edema. Tender to palpation.) Musculoskeletal : Apperance: Normal Neurologic: Alert, No Motor Deficits, Normal Affect, Normal Mood, No Sensory Deficits Cerebellar Function: Normal Reflexes: Normal Skin: Dry, Normal Color, Warm Lymphatic: No Adenopathy Was a procedure done? Was a procedure done?: No Differential Diagnosis EXT Differential Diagnosis: Cellulitis, Contusion, Other (Mass) X-Ray, Labs, Meds, VS Vital Signs Date Time Temp Pulse Resp B/P (MAP) Pulse Ox O2 Delivery O2 Flow Rate FiO2 04/06/25 23:28 97.4 63 20 134/94 (107) 99 97.4 04/06/25 21:26 97.6 64 12 160/77 (104) 100 97.6 X-Ray, Labs, Meds, VS Comment All studies performed the ED were evaluated by me personally. CT evaluation of left heel was relatively unremarkable. No consolidation or unusual mass formation noted. Patient has been advised to follow up with her automation/controls manager as scheduled. Time of 1ST Reevaluation: 00:36 Reevaluation 1ST: Unchanged Consultation: PCP, Other (Vp Patient) Patient Education/Counseling: Diagnosis, Treatment Family Education/Counseling: Diagnosis, Treatment, No Family Present Sepsis Recent Procedure: No On Antibiotic Therapy: No Respiratory Rate >20: No Heart Rate >90: No Temp<36 C (96.8 F) or >38.3 C: No SBP <90 or MAP <65 mmHG: No New Acute Mental Status Change: No Is the patient on CPAP, BIPAP,: No IV fluid given: No Departure 1 Departure Time of Disposition: 00:36 Impression: Primary Impression: Heel pain Disposition: HOME / SELF CARE / HOMELESS Condition: Stable Additional Instructions: Advised patient maintain appointment with automation/controls manager for continued evaluation of left heel concerns. e-Prescriptions Ibuprofen Micronized (Ibuprofen) 600 Mg Tab 600 MG PO Q6HP PRN, #20 TAB Prov: MEAGHAN ESCALONA PAC 04/07/25 Discharged With: Self, Friend Critical Care Note Critical Care Time?: No Stability Stability form required: No Heart Score Heart Score: Heart Score Response (Comments) Value History N/A 0 EKG N/A 0 Age N/A 0 Risk Factors N/A 0 Troponin N/A 0 Total 0 I personally scribed for MEAGHAN ESCALONA PAC ([email or web address]) on 04/06/25 at 23:58. Electronically submitted by Tariq Diaz ([email or web address]). MEAGHAN ESCALONA PAC Apr 06, 2025 23:58
--- NOTE | 2025-04-07 00:22 | DVH ---
EXAM: CT CT L FOOT WO CONTRAST HISTORY: Soft tissue heel mass COMPARISON: None TECHNIQUE: Noncontrast axial CT images of the left foot were performed. Sagittal and coronal reformat maricel images were obtained. This CT exam was performed using one or more of the following dose reductio n techniques: Automated exposure control, adjustment of the mA and/or kv according to patient size, o r the use of iterative reconstruction techniques. Radiation Dose Information: CT Dose: CTDI volume is 7.75+ 0.14 mGy. Dose-length product is 207.06 mGy *cm FINDINGS: Normal mineralization alignment. Joint spaces are preserved. No acute fracture. No discrete mass. M uscle bundles about the left foot are intact. Visualized tendons and ligaments are grossly intact alt francy not optimally evaluated by CT. IMPRESSION: No acute fracture of the left foot. No discrete soft tissue mass.
[2025-04-07] MEDS ORDERED: IBUP1TAB5 PO (00:37)
[2025-04-07 00:50] VITALS: BP 141/90; TEMP 98.1
[2025-04-07 00:51] VITALS: PULSE 54; RESP 17; O2SAT 100
== END 2025-04-07 00:47 | disposition home or self-care (01) ==
LOC: ER 21:12 → EDBD 21:12 → ER 04-07 00:47
DX: M79.672 Pain in left foot (principal); R22.42 Localized swelling, mass and lump, left lower limb; I10 Essential (primary) hypertension; I25.10 Atherosclerotic heart disease of native coronary artery without angina pectoris; J44.9 Chronic obstructive pulmonary disease, unspecified; E78.5 Hyperlipidemia, unspecified; Z86.73 Personal history of transient ischemic attack (TIA), and cerebral infarction without residual deficits; Z79.52 Long term (current) use of systemic steroids; Z79.899 Other long term (current) drug therapy
CPT/HCPCS: 73700

== ENCOUNTER 2025-05-01 00:23 | Emergency (ER) | payer MEDICARE, MEDICAID ==
[~2025-05-01] VITALS: Ht 177.8 cm; Wt 81.4 kg
[~2025-05-01 00:23] MED LIST changes: +IBUP1TAB5 PO
[2025-05-01 00:31] VITALS: TEMP 98.1
--- NOTE | 2025-05-01 00:58 | ED.PDOC ---
Back pain HPI HPI Comments PATIENT C/O RIGHT LOWER CHEEK PAIN, SWELLING STARTING THE DAY BEFORE YESTERDAY. RADIATES TO THE WHOLE RIGHT SIDE OF THE FACE AND HEAD. PATIENT WAS SEEN AT DENTIST, COULD NOT SEE ANYTHING ON THE XRAY Chief Complaint: Face pain Time Seen by MD: 00:41 Primary Care Provider: unknown Reviewed Notes: Nurses Notes, Medications, Allergies Allergies: Coded Allergies: NO KNOWN ALLERGIES (Unverified , 01/19/11) Home Meds Active Scripts Ibuprofen Micronized (Ibuprofen) 600 Mg Tab, 600 MG PO Q6HP PRN, #20 TAB Prov:MEAGHAN ESCALONA PAC 04/07/25 Tramadol Hcl (Ultram) 50 Mg Tab, 1 TAB PO Q6HR, #30 TAB Prov:CLARIBEL BENÍTEZ MD 06/24/22 Pantoprazole Sodium Sesquihydr (Protonix) 40 Mg Tab, 40 MG PO DAILY, #30 TAB Prov:CLARIBEL BENÍTEZ MD 06/24/22 Hydrocodone-Acetaminophen (Hydrocodone Bitartrate/AC 10-325 mg) 1 Tab Tab, 1 TAB PO Q6HP PRN, #20 TAB Prov:BRIAN JOHN MD 04/14/22 Prednisone (PREDNISONE) 5 Mg Tb, 20 MG PO BID for 5 Days, #40 TAB Prov:PURA ENGEL MD 07/31/19 Budesonide (Inhalation) (Budesonide) 0.5 Mg/2 Ml Giulia, 0.5 MG IN BID for 30 Days, ML Prov:PURA ENGEL MD 07/31/19 Albuterol Sulfate (VENTOLIN MDI) 90 Mcg Ih, 90 MCG IN Q6HP PRN for 30 Days, INH Prov:PURA ENGEL MD 07/31/19 Reported Medications Amlodipine Besylate (Amlodipine Besylate) 10 Mg Tab, 10 MG PO DAILY, TAB 03/25/18 Gabapentin (Gabapentin) 300 Mg Cap, 300 MG PO TID for 30 Days, MG 03/25/18 Prednisone (PREDNISONE) 5 Mg Tb, 20 MG GT BID, #60 03/25/18 Omeprazole (Gnp Omeprazole) 20 Mg Tab, 1 TAB PO DAILY, #90 TAB 1 Refill 03/25/18 Ranolazine (Ranexa) 500 Mg Tab, 500 MG PO BID, #60 TAB 03/25/18 Simvastatin (Simvastatin) 20 Mg Tab, 20 MG PO DAILY, #90 03/25/18 Metoprolol Tartrate (Metoprolol Tartrate) 25 Mg Tab, 25 MG PO BID for 30 Days, MG 03/25/18 Benazepril & Hydrochlorothiazi (Benazepril Hcl/Hydrochlor) 1 Tab Tab, 25 MG PO DAILY 04/13/10 Information Source: Patient Mode of Arrival: Ambulatory Past Medical History PAST MEDICAL HISTORY: Anemia, Asthma, CAD, Cancer, COPD, High Lipids, HTN, TIA Surgical History: Denies all surgeries CONDITIONING COACH History: No Pertinent CONDITIONING COACH History Family History Family History: No family hx of Cancer, No family hx of DM, No family hx of Heart chap[place], No family hx of HTN Social History Smoker: Non-Smoker Alcohol: Denies ETOH Use Drugs: Denies Drug Use Lives In: Home Constitutional: denies: chills, diaphoresis, fatigue, fever, malaise, sweats, weakness, others EENTM: reports: others (RIGHT-SIDED JAW PAIN); denies: blurred vision, double vision, ear bleeding, ear discharge, ear drainage, ear pain, ear ringing, eye pain, eye redness, hearing loss, mouth pain, mouth swelling, nasal discharge, nose bleeding, nose congestion, nose pain, photophobia, tearing, throat pain, throat swelling, voice changes Respiratory: denies: cough, hemoptysis, orthopnea, SOB at rest, shortness of breath, SOB with excertion, stridor, wheezing, others Genitourinary: denies: abnormal vagina bleeding, burning, dyspareunia, dysuria, flank pain, frequency, hematuria, incontinence, pain, , vagina discharge, urgency, others Neurological: denies: dizziness, fainting, headache, left sided numbness, left sided weakness, numbness, paresthesia, pre-existing deficit, right sided numbness, right sided weakness, seizure, speech problems, tingling, tremors, weakness, others Musculoskeletal: reports: others (jaw px) Physical Exam General Appearance: No Apparent Distress, Normal HEENT: Head (RIGHT SIDE LOWER JAWLINE MODERATE EDEMA AND TENDERNESS ON PALPATION NO NOTED OBVIOUS EXTERNAL TRAUMA PATIENT ABLE TO OPEN HER MOUTH FULLY WITH DISCOMFORT), Normal ENT Inspection, Pharynx Normal, TMs Normal Neck: Full Range of Motion Respiratory: Lungs Clear, No Respiratory Distress, Normal Breath Sounds Cardiovascular: No Edema, No JVD, No Murmur, No Gallop, Normal Peripheral Pulses, Regular Rate/Rhythm Breast Exam: Deferred Gastrointestinal: No Organomegaly, Non Tender, No Pulsatile Mass, Normal Bowel Sounds, Soft Genitalia: Deferred Pelvic: Deferred Rectal: Deferred Extremities: Normal range of motion, No pedal edema Musculoskeletal : Apperance: Normal Neurologic: Alert, No Motor Deficits, Normal Affect, Normal Mood, No Sensory Deficits Cerebellar Function: Normal Reflexes: NOT DONE Skin: Dry, Normal Color, Warm Lymphatic: No Adenopathy Was a procedure done? Was a procedure done?: No Back Pain Differential Dx Differential Diagnosis: Fracture, Musculoskeletal Pain, Strain X-Ray, Labs, Meds, VS Vital Signs Date Time Temp Pulse Resp B/P (MAP) Pulse Ox O2 Delivery O2 Flow Rate FiO2 05/01/25 03:36 65 18 121/85 (97) 99 05/01/25 00:31 98.1 68 18 118/84 100 98.1 Current Medications Medications (Trade) Dose Ordered Sig/Kyler Route Start Time Stop Time Status Last Admin Acetaminophen/ Hydrocodone Bitart ([place] 5/325MG Tab) 1 tab ONCE ONCE PO 05/01/25 02:15 05/01/25 02:16 DC 05/01/25 03:35 X-Ray, Labs, Meds, VS Comment CT MAXILLOFACIAL IMPRESSION: 1. Focal soft tissue swelling and edema anteriorly adjacent to the right paramedian mandible without definable mass or fluid collection to suggest abscess formation at this time. No evidence of fracture. CT without any identified mass or abscess noted soft tissue swelling. Advised patient to call PCP in the morning and follow up, advised to follow up back up with dental. Discussed alternate between ice and heat. [id number] Tylenol or Motrin. Return to the ER for fevers, increasing swelling and pain or any concerning symptoms. Patient agrees with discharge plan of care and indicates understanding Time of 1ST Reevaluation: 00:50 Reevaluation 1ST: Unchanged Time of 2ND Reevaluation: 04:11 Reevaluation 2ND: Improved Patient Education/Counseling: Diagnosis, Treatment, Prognosis, Need For Follow Up Family Education/Counseling: Diagnosis, Treatment, Prognosis, Need For Follow Up SEPSIS Sepsis Screen Date sepsis recognized/suspect: May 01, 2025 Time Sepsis recognized/suspect: 0031 Recent Procedure: No On Antibiotic Therapy: No Respiratory Rate >20: No Heart Rate >90: No Temp<36 C (96.8 F) or >38.3 C: No SBP <90 or MAP <65 mmHG: No New Acute Mental Status Change: No Is the patient on CPAP, BIPAP,: No Physician Orders Maxillofacial Without (05/01/25 02:11) Vital Signs Date Time Temp Pulse Resp B/P (MAP) Pulse Ox O2 Delivery O2 Flow Rate FiO2 05/01/25 03:36 65 18 121/85 (97) 99 05/01/25 00:31 98.1 68 18 118/84 100 98.1 Medications Medications Dose Ordered Sig/Kyler Route Start Time Stop Time Status Last Admin Dose Admin Acetaminophen/ Hydrocodone Bitart 1 tab ONCE ONCE PO 05/01/25 02:15 05/01/25 02:16 DC 05/01/25 03:35 Departure 1 Departure Time of Disposition: 04:11 Impression: Primary Impression: Mandibular swelling Disposition: 01 HOME / SELF CARE / HOMELESS Condition: Stable Discharged With: Spouse Critical Care Note Critical Care Time?: No Stability Stability form required: KOBI Greene May 01, 2025 00:57
[2025-05-01] MEDS: HYDROcodone-ACET 5/325MG TAB PO ONE ×2 (03:35→04:33)
[2025-05-01 03:36] VITALS: BP 121/85; PULSE 65; RESP 18; O2SAT 99
[2025-05-01] MEDS: KETOROLAC TROMETH 60MG/2ML VIAL IM ONE (03:36)
--- NOTE | 2025-05-01 03:54 | DVH ---
HISTORY: right sided jaw swelling/pain TECHNIQUE: Nonenhanced axial images through the facial bones with coronal and sagittal MPR. Radiation Dose Information: CT Dose: CTDI volume is 66.97 mGy. Dose-length product is 1364.04 mGy*cm COMPARISON: None FINDINGS: Mandible: Unremarkable Maxilla: Unremarkable Zygomatic arches: Unremarkable Nasal bone: Unremarkable Orbits: Unremarkable Sinuses: Right maxillary mucosal sinus disease. The remaining visualized paranasal sinuses are irma ar. Facial swelling: Moderate pre mandibular soft tissue swelling is noted within the midline and anteri raisa adjacent to the right mandibular body without organized fluid collection to suggest abscess. IMPRESSION: 1. Focal soft tissue swelling and edema anteriorly adjacent to the right paramedian mandible without definable mass or fluid collection to suggest abscess formation at this time. No evidence of fracture . Radiation optimization: All CT scans at this facility use at least one of these dose optimization shae hniques: automated exposure control mA and/or kV adjustment per patient size (includes targeted exam s where dose is matched to clinical indication) or iterative reconstruction.
[2025-05-01] MEDS ORDERED: CLIN1CAP70 PO (04:23)
[2025-05-01] MEDS: BENZOCAINE (DENTAL) 20 % SPRAY 60ML MT ONE (04:49)
== END 2025-05-01 04:41 | disposition home or self-care (01) ==
LOC: ER 00:23
DX: R22.0 Localized swelling, mass and lump, head (principal); R51.9 Headache, unspecified; I10 Essential (primary) hypertension; E78.5 Hyperlipidemia, unspecified; K21.9 Gastro-esophageal reflux disease without esophagitis; I25.10 Atherosclerotic heart disease of native coronary artery without angina pectoris; D64.9 Anemia, unspecified; Z79.899 Other long term (current) drug therapy; Z86.73 Personal history of transient ischemic attack (TIA), and cerebral infarction without residual deficits
CPT/HCPCS: 70486